=== PATIENT | female | born 1945 | race Hispanic/Latino ===

== ENCOUNTER 2017-04-04 05:07 | Emergency (ER) | payer MEDICARE, BC ==
[2017-04-04] MEDS ORDERED: Ketorolac Tromethamine 30 MG/ML VIAL ONE ×2 (05:32→06:14)
[2017-04-04 05:37] LABS: #Eosinphils 0.1 thou/uL (0.0-0.7); #Lymphocytes 1.5 thou/uL (1.20-3.40); #Monocytes 0.4 thou/uL (0.11-0.59); %Basophils 0.7 % (0.0-1.0); %Eosinophils 2.6 % (0.0-10.0); %Lymphocytes 29.8 % (21.0-51.0); %Monocytes 7.4 % (0.0-10.0); Hematocrit 39.9 % (36.0-47.0); Mean Platelet Volume 6.7 fL (7.4-10.4)
[2017-04-04 05:49] LABS: ALT (SGPT) 8 U/L (8-55); AST (SGOT) 14 U/L (5-34); Alkaline Phosphatase 66 U/L (40-150); Anion Gap 13 mmol/L (10-20); BUN (Urea Nitrogen) 16 mg/dL (9.8-20.1); Bilirubin, Total 0.3 mg/dL (0.2-1.2); Calc. Creatinine Clearance 0 mL/min (70-130); Calcium 9.2 mg/dL (7.8-10.44); Carbon Dioxide 23 mmol/L (23-31); Chloride 109 mmol/L (98-107); Estimated GFR-MDRD 73; Lipase 34 U/L (8-78); Protein, Total 7.1 g/dL (6.0-8.3)
[2017-04-04 05:57] LABS: Bilirubin Negative (Negative); Blood, Urine Small (Negative); Glucose, Urine (Dipstick) Negative (Negative); Ketone, Urine Negative (Negative); Nitrite Negative (Negative); Protein, Urine (Dipstick) Negative (Neg-Trace); Urobilinogen 0.2 mg/dL (0.2-1.0)
[2017-04-04 06:06] LABS: Bacteria/HPF Rare-Few HPF (None Seen); Hyaline Casts/LPF NONE SEEN LPF (0-3 Hyaline); RBC/HPF 0-3 HPF (0-3); Squamous Epithelial 0-3 HPF (0-3)
--- NOTE | 2017-04-04 08:22 | CT ---
PRELIMINARY REPORT/[facility]/EMERGENCY AFTER HOURS PROCEDURE: EXAM: CT Abdomen and Pelvis Without Intravenous Contrast EXAM DATE/TIME: Exam ordered 04/04/2017 5:40 AM CLINICAL HISTORY: 72 years old, female; Pain; Abdominal pain; Flank; Right; Patient HX: Елена has had right flank pain x 2 days. Started near the back, radiates toward the rlq. No dysuria, hematuria, or frequency. No fever, vomiting, diarrhea, or constipation. No similar episodes in the past. Improves with ibuprofen but recurs; Worse last night than the day before. No rash. TECHNIQUE: Axial computed tomography images of the abdomen and pelvis without intravenous contrast. Coronal reformatted images were created and reviewed. COMPARISON: No relevant prior studies available. FINDINGS: Lower thorax: The visualized portions of the lung bases are normal. A small hiatal hernia is present . ABDOMEN: Liver: There are no focal liver lesions present. Gallbladder and bile ducts: The gallbladder is normal. There is no evidence of biliary ductal dilati on. The gallbladder is normal. There is no evidence of biliary ductal dilation. No calcified stones. Pancreas: The pancreas is normal. No ductal dilation. Spleen: The spleen is normal. Adrenals: The adrenal glands are normal. Kidneys and ureters: There is a simple cyst in the right kidney. There is a simple cyst in the left kidney. No obstructing stones. No hydronephrosis. Stomach and bowel: There is nonspecific rectal wall thickening, possibly due to postsurgical change. The stomach is normal. The duodenum is unremarkable. The colon is normal. No obstruction. Appendix: A normal appendix is identified. PELVIS: Bladder: The bladder is normal. The bladder is normal. No stones. Reproductive: The uterus is not visualized, and may be atrophic or surgically absent. ABDOMEN and PELVIS: Intraperitoneal space: Normal. No free air. No significant fluid collection. Bones/joints: No acute fracture. No dislocation. Soft tissues: Normal. Vasculature: Normal. No abdominal aortic aneurysm. Lymph nodes: Normal. No enlarged lymph nodes. IMPRESSION: There is nonspecific rectal wall thickening, possibly due to postsurgical change however underlying mass cannot be excluded. Clinical correlation is advised. Thank you for allowing us to participate in the care of your patient. Dictated and Authenticated by: Chau Garay MD 04/04/2017 6:19 AM Central Time ([place] \T\ [place]) FINAL REPORT CT STONE PROTOCOL: I agree with the preliminary report given by Dr. Chau Garay of [facility]. POS: [facility]
== END 2017-04-04 06:49 | disposition home or self-care (01) ==
LOC: SCSER 05:07
DX: R10.31 Right lower quadrant pain (principal); E78.5 Hyperlipidemia, unspecified; Z79.82 Long term (current) use of aspirin; Z79.899 Other long term (current) drug therapy
CPT/HCPCS: 74176; 80053; 81003; 81015; 83690; 85025; 87086; 96361; 96374; 96376; J1885

== ENCOUNTER 2017-04-07 05:30 | Emergency (ER) | payer MEDICARE, BC ==
[2017-04-07 06:13] LABS: Bilirubin Negative (Negative); Blood, Urine Trace (Negative); Glucose, Urine (Dipstick) Negative (Negative); Ketone, Urine Negative (Negative); Nitrite Negative (Negative); Protein, Urine (Dipstick) Negative (Neg-Trace); Urobilinogen 0.2 mg/dL (0.2-1.0)
[2017-04-07 06:21] LABS: Bacteria/HPF None Seen HPF (None Seen); Hyaline Casts/LPF NONE SEEN LPF (0-3 Hyaline); RBC/HPF 0-3 HPF (0-3); Squamous Epithelial 0-3 HPF (0-3); WBC/HPF 0-3 HPF (0-3)
[2017-04-07] MEDS ORDERED: Ketorolac Tromethamine 30 MG/ML VIAL ONE (06:28)
[2017-04-07] MEDS ORDERED: Promethazine HCl 25 MG/ML VIAL ONE (06:57)
[2017-04-07] MEDS ORDERED: cefTRIAXone\\ROCEPHIN 1 GM VIAL ONE (07:50)
[2017-04-07] MEDS ORDERED: Sodium Chloride 0.9% 0 ML ONE (10:06)
== END 2017-04-07 08:33 | disposition home or self-care (01) ==
LOC: SCSER 05:30
DX: N12 Tubulo-interstitial nephritis, not specified as acute or chronic (principal); K59.00 Constipation, unspecified; B02.9 Zoster without complications; A49.02 Methicillin resistant Staphylococcus aureus infection, unspecified site; Z79.899 Other long term (current) drug therapy; E78.5 Hyperlipidemia, unspecified
CPT/HCPCS: 81003; 81015; 87086; 94760; 96361; 96374; 96375; J0696; J1885; J2270; J2550; J7050

== ENCOUNTER 2017-07-14 08:15 | Outpatient (CLI) | payer MEDICARE, BC | END 2017-07-14 08:16 | disposition home or self-care (01) | LOC: BICMRI 08:15 | PROVIDERS: ATTEND Anesthesiology Pain Medicine | DX: B02.29 Other postherpetic nervous system involvement (principal); M47.24 Other spondylosis with radiculopathy, thoracic region | CPT/HCPCS: 72146 ==

== ENCOUNTER 2017-10-19 11:54 | Emergency (ER) | payer MEDICARE, BC ==
--- NOTE | 2017-10-19 13:03 | RAD ---
THREE VIEWS LEFT FOOT: HISTORY: Patient who fell while getting up from a chair and injured left foot. FINDINGS: AP, lateral, and oblique views left foot are obtained. No evidence of left foot fractures, subluxations, or bony lesions seen. IMPRESSION: Normal 3 views left foot. POS: [facility]
[2017-10-19] MEDS ORDERED: Ibuprofen 600 MG TAB ONE (13:06)
--- NOTE | 2017-10-19 13:27 | RAD ---
THREE VIEWS OF THE LEFT ANKLE: INDICATION: Left ankle injury after fall. FINDINGS: There is a nondisplaced obliquely oriented fracture involving the lateral malleolus. Ankle mortise a nd talar dome are preserved. IMPRESSION: Nondisplaced lateral malleolar fracture. POS: [facility]
== END 2017-10-19 13:15 | disposition home or self-care (01) ==
LOC: SCSER 11:54
DX: S82.65XA Nondisplaced fracture of lateral malleolus of left fibula, initial encounter for closed fracture (principal); E78.5 Hyperlipidemia, unspecified; Z79.899 Other long term (current) drug therapy; W07.XXXA Fall from chair, initial encounter

== ENCOUNTER 2018-01-29 15:18 | Outpatient (CLI) | payer BC, MEDICARE | END 2018-01-29 15:19 | disposition home or self-care (01) | LOC: BICMAMMO 15:18 | PROVIDERS: ATTEND Internal Medicine | DX: Z12.31 Encounter for screening mammogram for malignant neoplasm of breast (principal); N64.89 Other specified disorders of breast; Z80.3 Family history of malignant neoplasm of breast | CPT/HCPCS: 77063; 77067 ==

== ENCOUNTER 2018-02-06 10:11 | Outpatient (CLI) | payer MEDICARE, BC | END 2018-02-06 10:12 | disposition home or self-care (01) | LOC: BICMAMMO 10:11 | PROVIDERS: ATTEND Internal Medicine | DX: N64.89 Other specified disorders of breast (principal); Z80.3 Family history of malignant neoplasm of breast | CPT/HCPCS: 76642; 77065; G0279 ==

== ENCOUNTER 2019-02-09 14:10 | Outpatient (CLI) | payer MEDICARE, BC | END 2019-02-09 14:11 | disposition home or self-care (01) | LOC: CTENTCT 14:10 | PROVIDERS: ATTEND Specialist | DX: J32.9 Chronic sinusitis, unspecified (principal) | CPT/HCPCS: 70486 ==

== ENCOUNTER 2019-04-20 11:05 | Outpatient (CLI) | payer MEDICARE, BC ==
--- NOTE | 2019-04-20 11:56 | RAD ---
CHEST 2 VIEWS: Date: 04/20/19 COMPARISON: 04/07/18. HISTORY: Chronic cough. FINDINGS: Atherosclerosis of aortic knob. Pulmonary vessels and hilum are normal. Costophrenic angles are clear . No masses or consolidation. No pneumothorax or acute osseous abnormalities. IMPRESSION: Atherosclerosis. No acute cardiopulmonary process. POS: [facility]
== END 2019-04-20 11:06 | disposition home or self-care (01) ==
LOC: BICRAD 11:05
PROVIDERS: ATTEND Physician Assistant Medical
DX: R05 Cough (principal); K21.9 Gastro-esophageal reflux disease without esophagitis; I70.0 Atherosclerosis of aorta
CPT/HCPCS: 71046

== ENCOUNTER 2019-05-26 10:07 | Outpatient (CLI) | payer MEDICARE, BC ==
--- NOTE | 2019-05-26 11:19 | BD ---
BONE DENSITOMETRY USING DEXA: HISTORY: Post menopausal screening for osteoporosis. Other disorders of bone density and structure. FINDINGS LUMBAR SPINE BMD (g/cm2) T-SCORE Z-SCORE L1 0.818 -1.6 0.6 L2 0.977 -0.5 1.9 L3 0.995 -0.8 1.7 L4 0.880 -1.6 0.9 TOTAL 0.920 -1.2 1.3 BMD (g/cm2) T-SCORE Z-SCORE NECK 0.567 -2.5 -0.5 TOTAL 0.645 -2.4 -0.5 IMPRESSION: Osteoporosis. POS: [facility]
== END 2019-05-26 10:08 | disposition home or self-care (01) ==
LOC: BICMAMMO 10:07
PROVIDERS: ATTEND Internal Medicine
DX: M85.80 Other specified disorders of bone density and structure, unspecified site (principal); M81.0 Age-related osteoporosis without current pathological fracture
CPT/HCPCS: 77080

== ENCOUNTER 2019-06-15 13:36 | Outpatient (CLI) | payer MEDICARE, BC ==
--- NOTE | 2019-06-15 14:03 | RAD ---
EXAM: Chest PA and lateral: HISTORY: Dyspnea. COMPARISON: 07/14/2014 FINDINGS: Heart: Normal cardiac silhouette Aorta: Atherosclerosis. Pulmonary vessels: Normal Costophrenic angles: Costophrenic angles are clear. Lungs: No consolidation or masses. Pneumothorax: No pneumothorax Osseous structures: No osseous abnormalities IMPRESSION: No acute cardiopulmonary process. Atherosclerosis.
== END 2019-06-15 13:37 | disposition home or self-care (01) ==
LOC: RAD 13:36
PROVIDERS: ATTEND Internal Medicine Pulmonary Disease
DX: R06.00 Dyspnea, unspecified (principal); I70.90 Unspecified atherosclerosis
CPT/HCPCS: 71046

== ENCOUNTER 2021-05-23 11:09 | Outpatient (CLI) | payer MEDICARE, BC | END 2021-05-23 11:10 | disposition home or self-care (01) | LOC: BICRAD 11:09 | PROVIDERS: ATTEND Nurse Practitioner Family | DX: M17.12 Unilateral primary osteoarthritis, left knee (principal) ==

== ENCOUNTER 2021-07-26 15:38 | Outpatient (CLI) | payer MEDICARE, BC | END 2021-07-26 15:39 | disposition home or self-care (01) | LOC: BICMAMMO 15:38 | PROVIDERS: ATTEND Internal Medicine | DX: Z12.31 Encounter for screening mammogram for malignant neoplasm of breast (principal); Z80.3 Family history of malignant neoplasm of breast | CPT/HCPCS: 77063; 77067 ==

== ENCOUNTER 2022-01-21 08:03 | Emergency (ER) | payer MEDICARE, BC ==
[2022-01-21 08:27] LABS: #Basophils 0.1 thou/uL (0.0-0.2); #Eosinphils 0.1 thou/uL (0.0-0.7); #Lymphocytes 1.4 thou/uL (1.20-3.40); #Monocytes 0.4 thou/uL (0.11-0.59); #Neutrophils 3.7 thou/uL (1.40-6.50); %Eosinophils 1.7 % (0.0-10.0); %Lymphocytes 25.3 % (21.0-51.0); %Neutrophils 65.1 % (42.0-75.0); Mean Corpuscular HGB CONC 32.5 g/dL (32.0-36.0); Mean Corpuscular Hemoglobin 31.4 pg (27.0-31.0); Mean Corpuscular Volume 96.7 fL (78.0-98.0); Mean Platelet Volume 7.4 fL (7.4-10.4); Platelet Count 211 thou/uL (130-400); RBC Distribution Width 11.9 % (11.5-14.5); Red Blood Cell (RBC) Count 4.44 mill/uL (4.20-5.40); White Blood Cell (WBC) Count 5.6 thou/uL (4.8-10.8)
[2022-01-21 08:49] LABS: ALT (SGPT) 12 U/L (8-55); AST (SGOT) 19 U/L (5-34); Albumin 4.1 g/dL (3.4-4.8); Alkaline Phosphatase 69 U/L (40-110); Anion Gap 13 mmol/L (10-20); BUN (Urea Nitrogen) 18 mg/dL (9.8-20.1); Bilirubin, Total 0.6 mg/dL (0.2-1.2); Calc. Creatinine Clearance 0 mL/min (70-130); Calcium 9.5 mg/dL (7.8-10.44); Carbon Dioxide 28 mmol/L (23-31); Chloride 107 mmol/L (98-107); Estimated GFR 75; Glucose 94 mg/dL (83-110); Lipase 38 U/L (8-78); Potassium 4.5 mmol/L (3.5-5.1); Protein, Total 7.1 g/dL (5.8-8.1); Sodium 143 mmol/L (136-145)
[2022-01-21] MEDS ORDERED: Nitroglycerin 2% Ointment 1 INCH/1 GM Packet ONE (08:56)
[2022-01-21] MEDS ORDERED: Iopamidol-370 76% 500 ML 1 ML ONE (11:32)
[2022-01-21] MEDS ORDERED: Pregabalin 50 MG CAP PO SCH (13:30)
[2022-01-21] MEDS ORDERED: Nitroglycerin 2% Ointment 1 INCH/1 GM Packet TOP SCH (13:30)
[2022-01-21] MEDS ORDERED: DULoxetine 60 MG CAP PO SCH (13:30)
[2022-01-21 17:43] LABS: SARS-CoV-2 NAA Rapid Test Not Detected (NotDetected)
== END 2022-01-21 17:36 | disposition short-term general hospital (02) ==
LOC: ERS 08:03
DX: R07.9 Chest pain, unspecified (principal); I10 Essential (primary) hypertension; E78.5 Hyperlipidemia, unspecified; E78.00 Pure hypercholesterolemia, unspecified; Z20.822 Contact with and (suspected) exposure to COVID-19; Z79.899 Other long term (current) drug therapy; Z79.82 Long term (current) use of aspirin
CPT/HCPCS: 71045; 71275; 74174; 80053; 83690; 84484; 85025; 85379; 93005; 94760; U0002

== ENCOUNTER 2022-01-22 19:02 | Inpatient (IN) | payer MEDICARE, BC ==
[2022-01-22 23:23] VITALS: BMI 24.2
[2022-01-22] MEDS ORDERED: ALPRAZolam 0.5 MG TAB PO SCH (23:45)
[2022-01-23] MEDS ORDERED: Ondansetron ODT 4 MG TAB PO PRN (00:18)
[2022-01-23] MEDS ORDERED: Acetaminophen 650 MG Suppository PR PRN (00:18)
[2022-01-23] MEDS ORDERED: Acetaminophen 325 MG TAB PO PRN (00:18)
[2022-01-23] MEDS ORDERED: Ondansetron PF 4 MG/2 ML Vial IVP PRN ×2 (00:18→12:49)
[2022-01-23] MEDS ORDERED: Morphine 4 MG/ML VIAL SLOW IVP PRN (00:24)
[2022-01-23] MEDS ORDERED: Nitroglycerin 0.4 MG TAB (25 Tab Bottle) SL PRN (00:24)
[2022-01-23] MEDS ORDERED: Lidocaine 1% MPF 2 ML VIAL ONE (06:04)
[2022-01-23] MEDS ORDERED: Albumin 5% 500 ML ONE (06:16)
[2022-01-23 06:48] LABS: #Eosinphils 0.1 thou/uL (0.0-0.7); #Lymphocytes 1.3 thou/uL (1.20-3.40); #Monocytes 0.4 thou/uL (0.11-0.59); #Neutrophils 2.8 thou/uL (1.40-6.50); %Basophils 0.2 % (0.0-1.0); %Eosinophils 2.4 % (0.0-10.0); %Lymphocytes 28.6 % (21.0-51.0); %Monocytes 8.4 % (0.0-10.0); %Neutrophils 60.4 % (42.0-75.0); Hemoglobin 12.1 g/dL (12.0-16.0); Mean Corpuscular Volume 96.8 fL (78.0-98.0); Mean Platelet Volume 7.6 fL (7.4-10.4); Platelet Count 177 thou/uL (130-400); RBC Distribution Width 11.9 % (11.5-14.5); Red Blood Cell (RBC) Count 3.79 mill/uL (4.20-5.40); White Blood Cell (WBC) Count 4.6 thou/uL (4.8-10.8)
[2022-01-23 06:49] LABS: Anion Gap 11 mmol/L (10-20); BUN (Urea Nitrogen) 14 mg/dL (9.8-20.1); Calc. Creatinine Clearance 65 mL/min (70-130); Calcium 8.9 mg/dL (7.8-10.44); Carbon Dioxide 25 mmol/L (23-31); Chloride 108 mmol/L (98-107); Estimated GFR 83; Glucose 87 mg/dL (83-110); Potassium 3.7 mmol/L (3.5-5.1); Sodium 140 mmol/L (136-145)
[2022-01-23] MEDS ORDERED: Heparin 10,000 UNITS/1 ML VIAL 30,000 UNITS in Sodium Chloride 0.9% 1,000 ML FS SCH (07:00)
[2022-01-23] MEDS ORDERED: Midazolam HCl 5 mg/5 ml Vial ONE (07:06)
[2022-01-23] MEDS ORDERED: fentaNYL Citrate/PF 100 MCG/2 ML SYRINGE ONE (07:06)
[2022-01-23] MEDS ORDERED: Dexmedetomidine 200 MCG/2 ML VIAL ONE (07:06)
[2022-01-23] MEDS ORDERED: Lidocaine 1% PF 5 ML VIAL ONE ×2 (07:13→09:17)
[2022-01-23] MEDS ORDERED: Ondansetron ODT 4 MG TAB ONE (07:13)
[2022-01-23] MEDS ORDERED: Levofloxacin 500 mg/D5W 100 ml Premix Bag ONE (07:22)
[2022-01-23] MEDS ORDERED: PHENYLEPHRINE-NS 100 MCG/ML 10 ML SYRINGE ONE ×2 (08:34→08:47)
[2022-01-23] MEDS ORDERED: Aspirin 81 mg Enteric Coated Tablet PO SCH (09:00)
[2022-01-23] MEDS ORDERED: SUGAMMADEX SODIUM 200 MG/2 ML VIAL ONE (09:12)
[2022-01-23] MEDS ORDERED: Heparin 30,000 units/30 ml VIAL ONE (09:17)
[2022-01-23] MEDS ORDERED: PROPOFOL 200 MG/20 ML VIAL ONE (09:17)
[2022-01-23] MEDS ORDERED: Glycopyrrolate 0.2 MG/ML 5 ML SYRINGE ONE (09:17)
[2022-01-23] MEDS ORDERED: Aminocaproic Acid 5 GM/20 ML VIAL ONE (09:17)
[2022-01-23] MEDS ORDERED: Heparin 5,000 UNITS/ML VIAL ONE (09:17)
[2022-01-23] MEDS ORDERED: Nitroglycerin 50 MG/250 ML BOT ONE (09:17)
[2022-01-23] MEDS ORDERED: Calcium Chloride 1 GM/10 ML Abboject SYRINGE ONE (09:17)
[2022-01-23] MEDS ORDERED: Papaverine 60 MG/2 ML VIAL ONE (09:17)
[2022-01-23] MEDS ORDERED: Sodium Bicarb 50 MEQ/50 ML Abboject 8.4% SYRINGE ONE (09:17)
[2022-01-23] MEDS ORDERED: Dexamethasone 20 MG/5 ML VIAL ONE (09:17)
[2022-01-23] MEDS ORDERED: Thrombin 5000 UNITS/5 ML VIAL ONE (09:17)
[2022-01-23] MEDS ORDERED: Lidocaine 2% PF 100 mg/5 ml Syringe ONE (09:17)
[2022-01-23] MEDS ORDERED: Ondansetron PF 4 MG/2 ML Vial ONE (09:17)
[2022-01-23] MEDS ORDERED: Vecuronium 10 MG VIAL ONE (09:17)
[2022-01-23] MEDS ORDERED: Magnesium 5 GM/10 ML VIAL ONE (09:17)
[2022-01-23] MEDS ORDERED: Norepinephrine 4 MG/4 ML VIAL ONE (09:17)
[2022-01-23] MEDS ORDERED: Protamine Sulfate 250 MG/25 ML VIAL ONE (09:17)
[2022-01-23] MEDS ORDERED: Potassium Chloride 60 MEQ/30 ML VIAL ONE (09:17)
[2022-01-23] MEDS ORDERED: Cardioplegic Soln 1,000 ML BAG ONE (09:17)
[2022-01-23] MEDS ORDERED: Nitroglycerin 50 MG/250 ML BOT 250 ML ONE (11:24)
[2022-01-23 11:55] LABS: Actual Bicarbonate (HCO3a) 22.9 mEq/L (22-28); Analyzer IN Cardio OR; Base Excess (BEa) 0.1 mEq/L (-2.0 to +3.0); CO2 Tension 31.1 mmHg (35.0-45.0); Calcium, Ionized (arterial) 1.13 mmol/L (1.12-1.30); Carboxyhemoglobin (COHb) 0.2 gm% (0.0-3.0); Potassium - ABG Lab 3.66 mmol/L (3.70-5.30); pH, Arterial 7.48 (7.35-7.45)
[2022-01-23 11:56] LABS: Actual Bicarbonate (HCO3a) 21.7 mEq/L (22-28); Analyzer IN Cardio OR; Base Excess (BEa) -0.1 mEq/L (-2.0 to +3.0); Calcium, Ionized (arterial) 0.92 mmol/L (1.12-1.30); Carboxyhemoglobin (COHb) 0.5 gm% (0.0-3.0); Hemoglobin (Hb) 7.5 g/dL (12.0-16.0); O2 Tension (PaO2), arterial 418.3 mmHg (> 70.0); Potassium - ABG Lab 5.32 mmol/L (3.70-5.30)
[2022-01-23 11:56] LABS: Actual Bicarbonate (HCO3a) 22.6 mEq/L (22-28); Analyzer IN Cardio OR; Base Excess (BEa) 0.2 mEq/L (-2.0 to +3.0); CO2 Tension 27.8 mmHg (35.0-45.0); Calcium, Ionized (arterial) 1.13 mmol/L (1.12-1.30); Carboxyhemoglobin (COHb) 0.3 gm% (0.0-3.0); Potassium - ABG Lab 4.12 mmol/L (3.70-5.30); pH, Arterial 7.53 (7.35-7.45)
[2022-01-23 11:56] LABS: Actual Bicarbonate (HCO3a) 23.6 mEq/L (22-28); Analyzer IN Cardio OR; Base Excess (BEa) -0.3 mEq/L (-2.0 to +3.0); CO2 Tension 36.1 mmHg (35.0-45.0); Calcium, Ionized (arterial) 1.11 mmol/L (1.12-1.30); Carboxyhemoglobin (COHb) 0.2 gm% (0.0-3.0); Hemoglobin (Hb) 11.7 g/dL (12.0-16.0); O2 Tension (PaO2), arterial 478.6 mmHg (> 70.0); Potassium - ABG Lab 3.84 mmol/L (3.70-5.30); pH, Arterial 7.43 (7.35-7.45)
[2022-01-23 11:56] LABS: Actual Bicarbonate (HCO3a) 22.4 mEq/L (22-28); Analyzer IN Cardio OR; Base Excess (BEa) -5.5 mEq/L (-2.0 to +3.0); CO2 Tension 54.6 mmHg (35.0-45.0); Carboxyhemoglobin (COHb) 0.3 gm% (0.0-3.0); Hemoglobin (Hb) 11.9 g/dL (12.0-16.0); Potassium - ABG Lab 4.11 mmol/L (3.70-5.30)
[2022-01-23 11:57] LABS: O2 Tension (PaO2), arterial 521.8 mmHg (> 70.0); Puncture Site Arterial Line
[2022-01-23 11:58] LABS: pH, Arterial 7.56 (7.35-7.45)
[2022-01-23 11:58] LABS: Puncture Site Arterial Line
[2022-01-23 11:59] LABS: CO2 Tension 24.7 mmHg (35.0-45.0); Puncture Site Arterial Line
[2022-01-23 12:00] LABS: Puncture Site Arterial Line
[2022-01-23 12:00] LABS: Puncture Site Arterial Line; pH, Arterial 7.23 (7.35-7.45)
[2022-01-23] MEDS ORDERED: niCARdipine 25 MG in Sodium Chloride 0.9% 250 ML 250 ML IVPB PRN (12:49)
[2022-01-23] MEDS ORDERED: Mag-Al 1200 mg/1200 mg/30 ML UDCUP PO PRN (12:49)
[2022-01-23] MEDS ORDERED: Hetastarch 6% 500 ML 500 ML IVPB PRN (12:49)
[2022-01-23] MEDS ORDERED: NOREPINEPHRINE 8 MG/250 ML-D5W 250 ML IVPB PRN (12:49)
[2022-01-23] MEDS ORDERED: DOPamine 400 MG/D5W 250 ML 250 ML IVPB PRN (12:49)
[2022-01-23] MEDS ORDERED: Potassium Chloride 20 MEQ/100 ML PREMIX BAG IVPB PRN (12:49)
[2022-01-23] MEDS ORDERED: Post-Op Insulin Drip Protocol IVPB ONE (12:49)
[2022-01-23] MEDS ORDERED: Bisacodyl 5 MG TAB PO PRN (12:49)
[2022-01-23] MEDS ORDERED: Nitroglycerin 50 MG/250 ML BOT 250 ML IVPB PRN (12:49)
[2022-01-23] MEDS ORDERED: Morphine 2 MG/ML VIAL SLOW IVP PRN (12:49)
[2022-01-23] MEDS ORDERED: Guaifenesin DM 100-10/5 ML UDCUP PO PRN (12:49)
[2022-01-23] MEDS ORDERED: Bisacodyl 10 MG SUPP PR PRN (12:49)
[2022-01-23] MEDS ORDERED: hydrALAZINE 20 MG/ML VIAL SLOW IVP PRN (12:49)
[2022-01-23 13:18] LABS: #Eosinphils 0.1 thou/uL (0.0-0.7); #Lymphocytes 1.1 thou/uL (1.20-3.40); #Monocytes 0.4 thou/uL (0.11-0.59); #Neutrophils 10.8 thou/uL (1.40-6.50); %Basophils 0.1 % (0.0-1.0); %Eosinophils 0.6 % (0.0-10.0); %Lymphocytes 9.1 % (21.0-51.0); %Monocytes 3.3 % (0.0-10.0); %Neutrophils 86.9 % (42.0-75.0); Mean Corpuscular HGB CONC 32.5 g/dL (32.0-36.0); Mean Corpuscular Hemoglobin 31.8 pg (27.0-31.0); Mean Corpuscular Volume 97.9 fL (78.0-98.0); Mean Platelet Volume 7.5 fL (7.4-10.4); Platelet Count 136 thou/uL (130-400); Red Blood Cell (RBC) Count 3.78 mill/uL (4.20-5.40); White Blood Cell (WBC) Count 12.4 thou/uL (4.8-10.8)
[2022-01-23 13:30] LABS: INR-International Normal Ratio 1.3; PTT 33.4 sec (22.9-36.1); Prothrombin Time 16.2 sec (12.0-14.7)
[2022-01-23] MEDS ORDERED: Dextrose 5% in Water 1,000 ML IV PRN (13:30)
[2022-01-23] MEDS ORDERED: HUMULIN R 100 UNITS in Sodium Chloride 0.9% 100 ML IVPB SCH (13:30)
[2022-01-23] MEDS ORDERED: Dextrose 50% Abboject 50 ML SYRINGE SLOW IVP PRN (13:30)
[2022-01-23] MEDS ORDERED: Insulin Regular 300 UNITS/3 ML VIAL SC PRN (13:30)
[2022-01-23 13:50] LABS: Anion Gap 15 mmol/L (10-20); BUN (Urea Nitrogen) 11 mg/dL (9.8-20.1); Calc. Creatinine Clearance 75 mL/min (70-130); Calcium 7.5 mg/dL (7.8-10.44); Carbon Dioxide 17 mmol/L (23-31); Chloride 111 mmol/L (98-107); Estimated GFR 90; Glucose 166 mg/dL (83-110); Potassium 4.2 mmol/L (3.5-5.1); Sodium 139 mmol/L (136-145)
[2022-01-23] MEDS: Ketorolac Tromethamine 30 MG/ML VIAL IVP SCH ×3 (14:03→23:15)
[2022-01-23] MEDS: Fentanyl 100 MCG/2 ML VIAL SLOW IVP PRN ×3 (14:10→19:55)
[2022-01-23] MEDS: Lactated Ringer's 1,000 ML IV SCH (14:18)
[2022-01-23 16:33] LABS: Hemoglobin 12.4 g/dL (12.0-16.0)
[2022-01-23 17:01] LABS: Potassium 4.5 mmol/L (3.5-5.1)
[2022-01-23] MEDS: Famotidine/PF 20 mg/2ml Vial SLOW IVP SCH (20:00)
[2022-01-23] MEDS: Acetaminophen 325 MG TAB PO PRN (22:29)
[2022-01-24] MEDS: Fentanyl 100 MCG/2 ML VIAL SLOW IVP PRN ×2 (00:07→02:30)
[2022-01-24] MEDS: Lactated Ringer's 1,000 ML IV SCH ×2 (02:34→14:21)
[2022-01-24 05:13] LABS: #Lymphocytes 0.5 thou/uL (1.20-3.40); #Monocytes 0.6 thou/uL (0.11-0.59); #Neutrophils 9.8 thou/uL (1.40-6.50); %Eosinophils 0.1 % (0.0-10.0); %Lymphocytes 4.9 % (21.0-51.0); %Monocytes 5.6 % (0.0-10.0); %Neutrophils 89.4 % (42.0-75.0); Mean Corpuscular HGB CONC 33.4 g/dL (32.0-36.0); Mean Corpuscular Hemoglobin 32.2 pg (27.0-31.0); Mean Corpuscular Volume 96.3 fL (78.0-98.0); Mean Platelet Volume 7.6 fL (7.4-10.4); Platelet Count 157 thou/uL (130-400); RBC Distribution Width 12.2 % (11.5-14.5); Red Blood Cell (RBC) Count 3.42 mill/uL (4.20-5.40)
[2022-01-24 05:35] LABS: Anion Gap 12 mmol/L (10-20); BUN (Urea Nitrogen) 14 mg/dL (9.8-20.1); Calc. Creatinine Clearance 65 mL/min (70-130); Calcium 8.2 mg/dL (7.8-10.44); Carbon Dioxide 22 mmol/L (23-31); Chloride 109 mmol/L (98-107); Estimated GFR 83; Glucose 116 mg/dL (83-110); Potassium 4.2 mmol/L (3.5-5.1); Sodium 139 mmol/L (136-145)
[2022-01-24] MEDS: Ketorolac Tromethamine 30 MG/ML VIAL IVP SCH ×4 (06:13→23:55)
[2022-01-24] MEDS: Famotidine/PF 20 mg/2ml Vial SLOW IVP SCH (08:49)
[2022-01-24] MEDS: Polyethylene Glycol 3350 17 GM Packet PO SCH (08:49)
[2022-01-24] MEDS: Aspirin Chewable 81 MG TAB PO SCH (08:49)
[2022-01-24] MEDS ORDERED: Insulin Glargine 30 UNITS/0.3 ML VIAL SC PRN (13:24)
[2022-01-24] MEDS ORDERED: Nitroglycerin 0.4 MG TAB (25 Tab Bottle) SL PRN (16:35)
[2022-01-24] MEDS ORDERED: Mineral Oil ENEMA PR PRN (16:35)
[2022-01-24] MEDS: Rosuvastatin 10 MG TAB PO SCH (20:35)
[2022-01-24] MEDS: Pregabalin 50 MG CAP PO SCH (20:35)
[2022-01-24] MEDS: Famotidine 20 MG TAB PO SCH (20:35)
[2022-01-25 04:50] LABS: #Lymphocytes 0.9 thou/uL (1.20-3.40); #Monocytes 0.4 thou/uL (0.11-0.59); #Neutrophils 5.3 thou/uL (1.40-6.50); %Eosinophils 0.4 % (0.0-10.0); %Lymphocytes 13.4 % (21.0-51.0); %Monocytes 6.5 % (0.0-10.0); %Neutrophils 79.6 % (42.0-75.0); Hemoglobin 8.8 g/dL (12.0-16.0); Mean Corpuscular Hemoglobin 32.3 pg (27.0-31.0); Mean Corpuscular Volume 97.7 fL (78.0-98.0); Mean Platelet Volume 7.9 fL (7.4-10.4); Platelet Count 120 thou/uL (130-400); RBC Distribution Width 12.3 % (11.5-14.5); Red Blood Cell (RBC) Count 2.73 mill/uL (4.20-5.40); White Blood Cell (WBC) Count 6.7 thou/uL (4.8-10.8)
[2022-01-25 05:10] LABS: Anion Gap 12 mmol/L (10-20); BUN (Urea Nitrogen) 16 mg/dL (9.8-20.1); Calc. Creatinine Clearance 66 mL/min (70-130); Calcium 8.5 mg/dL (7.8-10.44); Carbon Dioxide 22 mmol/L (23-31); Chloride 112 mmol/L (98-107); Estimated GFR 80; Glucose 113 mg/dL (83-110); Potassium 3.8 mmol/L (3.5-5.1); Sodium 142 mmol/L (136-145)
[2022-01-25] MEDS: Levothyroxine Sodium 25 MCG TAB PO SCH (06:01)
[2022-01-25] MEDS: Ketorolac Tromethamine 30 MG/ML VIAL IVP SCH (06:02)
[2022-01-25] MEDS ORDERED: Melatonin 3 MG TAB PO PRN (06:22)
[2022-01-25] MEDS: DULoxetine 60 MG CAP PO SCH (08:46)
[2022-01-25] MEDS: Pregabalin 50 MG CAP PO SCH ×2 (08:48→20:02)
[2022-01-25] MEDS: Potassium Chloride 10 MEQ TAB PO SCH (08:50)
[2022-01-25] MEDS: Polyethylene Glycol 3350 17 GM Packet PO SCH (08:51)
[2022-01-25] MEDS: Famotidine 20 MG TAB PO SCH ×2 (08:51→20:01)
[2022-01-25] MEDS: Aspirin Chewable 81 MG TAB PO SCH (08:51)
[2022-01-25] MEDS: Furosemide 20 MG TAB PO SCH (08:51)
[2022-01-25] MEDS: Rosuvastatin 10 MG TAB PO SCH (20:01)
[2022-01-26 04:51] LABS: #Monocytes 0.3 thou/uL (0.11-0.59); %Eosinophils 0.3 % (0.0-10.0); %Neutrophils 78.7 % (42.0-75.0); Hemoglobin 8.7 g/dL (12.0-16.0); Mean Corpuscular HGB CONC 33.1 g/dL (32.0-36.0); Mean Corpuscular Hemoglobin 32.6 pg (27.0-31.0); Mean Corpuscular Volume 98.4 fL (78.0-98.0); Mean Platelet Volume 7.6 fL (7.4-10.4); Platelet Count 144 thou/uL (130-400); RBC Distribution Width 12.3 % (11.5-14.5); Red Blood Cell (RBC) Count 2.66 mill/uL (4.20-5.40); White Blood Cell (WBC) Count 6.4 thou/uL (4.8-10.8)
[2022-01-26] MEDS: Levothyroxine Sodium 25 MCG TAB PO SCH (04:51)
[2022-01-26] MEDS: Acetaminophen 325 MG TAB PO PRN (04:52)
[2022-01-26] MEDS: Aspirin Chewable 81 MG TAB PO SCH (09:54)
[2022-01-26] MEDS: DULoxetine 60 MG CAP PO SCH (09:54)
[2022-01-26] MEDS: Furosemide 20 MG TAB PO SCH (09:54)
[2022-01-26] MEDS: Famotidine 20 MG TAB PO SCH ×2 (09:54→21:22)
[2022-01-26] MEDS: Potassium Chloride 10 MEQ TAB PO SCH (09:54)
[2022-01-26] MEDS: Pregabalin 50 MG CAP PO SCH ×2 (09:55→21:22)
[2022-01-26] MEDS: Polyethylene Glycol 3350 17 GM Packet PO SCH (09:56)
[2022-01-26] MEDS: Rosuvastatin 10 MG TAB PO SCH (21:22)
[2022-01-27] MEDS: Levothyroxine Sodium 25 MCG TAB PO SCH (05:32)
[2022-01-27 05:51] LABS: #Eosinphils 0.1 thou/uL (0.0-0.7); #Lymphocytes 0.9 thou/uL (1.20-3.40); #Monocytes 0.4 thou/uL (0.11-0.59); %Basophils 0.2 % (0.0-1.0); %Lymphocytes 17.3 % (21.0-51.0); %Monocytes 7.3 % (0.0-10.0); %Neutrophils 73.2 % (42.0-75.0); Hemoglobin 8.2 g/dL (12.0-16.0); Mean Corpuscular HGB CONC 32.7 g/dL (32.0-36.0); Mean Corpuscular Hemoglobin 32.1 pg (27.0-31.0); Mean Corpuscular Volume 98.2 fL (78.0-98.0); Mean Platelet Volume 7.6 fL (7.4-10.4); Platelet Count 153 thou/uL (130-400); RBC Distribution Width 12.3 % (11.5-14.5); Red Blood Cell (RBC) Count 2.57 mill/uL (4.20-5.40); White Blood Cell (WBC) Count 5.4 thou/uL (4.8-10.8)
[2022-01-27] MEDS: Potassium Chloride 10 MEQ TAB PO SCH (08:34)
[2022-01-27] MEDS: Aspirin Chewable 81 MG TAB PO SCH (08:34)
[2022-01-27] MEDS: DULoxetine 60 MG CAP PO SCH (08:35)
[2022-01-27] MEDS: Pregabalin 50 MG CAP PO SCH ×2 (08:35→20:43)
[2022-01-27] MEDS: Polyethylene Glycol 3350 17 GM Packet PO SCH (08:35)
[2022-01-27] MEDS: Furosemide 20 MG TAB PO SCH (08:35)
[2022-01-27] MEDS: Famotidine 20 MG TAB PO SCH ×2 (08:36→20:43)
[2022-01-27] MEDS: Metoprolol Tartrate 25 MG TAB PO SCH ×2 (10:02→20:44)
[2022-01-27] MEDS: Rosuvastatin 10 MG TAB PO SCH (20:43)
[2022-01-27] MEDS: Acetaminophen 325 MG TAB PO PRN (20:47)
[2022-01-28] MEDS: Levothyroxine Sodium 25 MCG TAB PO SCH (05:29)
[2022-01-28 05:39] LABS: #Eosinphils 0.1 thou/uL (0.0-0.7); #Lymphocytes 0.9 thou/uL (1.20-3.40); #Monocytes 0.4 thou/uL (0.11-0.59); #Neutrophils 3.2 thou/uL (1.40-6.50); %Basophils 0.3 % (0.0-1.0); %Lymphocytes 19.2 % (21.0-51.0); %Monocytes 9.1 % (0.0-10.0); %Neutrophils 68.3 % (42.0-75.0); Hemoglobin 9.6 g/dL (12.0-16.0); Mean Corpuscular HGB CONC 32.8 g/dL (32.0-36.0); Mean Corpuscular Hemoglobin 31.6 pg (27.0-31.0); Mean Corpuscular Volume 96.4 fL (78.0-98.0); Mean Platelet Volume 7.1 fL (7.4-10.4); Platelet Count 179 thou/uL (130-400); RBC Distribution Width 13.3 % (11.5-14.5); Red Blood Cell (RBC) Count 3.03 mill/uL (4.20-5.40); White Blood Cell (WBC) Count 4.6 thou/uL (4.8-10.8)
[2022-01-28 08:19] VITALS: TEMP 98.3
[2022-01-28 10:14] VITALS: BP 145/65
[2022-01-28] MEDS: Potassium Chloride 10 MEQ TAB PO SCH (10:21)
[2022-01-28] MEDS: Famotidine 20 MG TAB PO SCH (10:22)
[2022-01-28] MEDS: Aspirin Chewable 81 MG TAB PO SCH (10:22)
[2022-01-28] MEDS: Metoprolol Tartrate 25 MG TAB PO SCH (10:23)
[2022-01-28] MEDS: Pregabalin 50 MG CAP PO SCH (10:23)
[2022-01-28] MEDS: DULoxetine 60 MG CAP PO SCH (10:23)
[2022-01-28] MEDS: Furosemide 20 MG TAB PO SCH (10:23)
[2022-01-28] MEDS: Polyethylene Glycol 3350 17 GM Packet PO SCH (10:24)
== END 2022-01-28 12:25 | disposition home or self-care (01) | DRG 234 ==
LOC: 2SW 19:02 → CCU 01-23 07:18 → 2NO 01-24 16:33
PROVIDERS: ADMIT Thoracic Surgery (Cardiothoracic Vascular Surgery); ATTEND Internal Medicine
PROC: 4A023N7 Measurement of Cardiac Sampling and Pressure, Left Heart, Percutaneous Approach (ICD-10-PCS; 2022-01-22)
PROC: B2111ZZ Fluoroscopy of Multiple Coronary Arteries using Low Osmolar Contrast (ICD-10-PCS; 2022-01-22)
PROC: 3E033XZ Introduction of Vasopressor into Peripheral Vein, Percutaneous Approach (ICD-10-PCS; principal; 2022-01-23)
PROC: 021009W Bypass Coronary Artery, One Artery from Aorta with Autologous Venous Tissue, Open Approach (ICD-10-PCS; 2022-01-23)
PROC: 02100Z9 Bypass Coronary Artery, One Artery from Left Internal Mammary, Open Approach (ICD-10-PCS; 2022-01-23)
PROC: 06BQ0ZZ Excision of Left Saphenous Vein, Open Approach (ICD-10-PCS; 2022-01-23)
PROC: 5A1221Z Performance of Cardiac Output, Continuous (ICD-10-PCS; 2022-01-23)
PROC: 02L70CK Occlusion of Left Atrial Appendage with Extraluminal Device, Open Approach (ICD-10-PCS; 2022-01-23)
PROC: 30233N1 Transfusion of Nonautologous Red Blood Cells into Peripheral Vein, Percutaneous Approach (ICD-10-PCS; 2022-01-27)
DX: I25.118 Atherosclerotic heart disease of native coronary artery with other forms of angina pectoris (principal); D62 Acute posthemorrhagic anemia; B02.29 Other postherpetic nervous system involvement; Z20.822 Contact with and (suspected) exposure to COVID-19; I10 Essential (primary) hypertension; E03.9 Hypothyroidism, unspecified; K21.9 Gastro-esophageal reflux disease without esophagitis; F41.9 Anxiety disorder, unspecified; F32.A Depression, unspecified; Z88.0 Allergy status to penicillin; Z79.899 Other long term (current) drug therapy; Z79.82 Long term (current) use of aspirin; Z79.890 Hormone replacement therapy; Z98.890 Other specified postprocedural states; I25.84 Coronary atherosclerosis due to calcified coronary lesion; E78.2 Mixed hyperlipidemia; R51.9 Headache, unspecified; G31.84 Mild cognitive impairment of uncertain or unknown etiology; M17.0 Bilateral primary osteoarthritis of knee; R73.03 Prediabetes; R05.3 Chronic cough; E55.9 Vitamin D deficiency, unspecified; Z86.16 Personal history of COVID-19
CPT/HCPCS: 36415; 36416; 36430; 71045; 71275; 74174; 80048; 80053; 80061; 82805; 83036; 83690; 84443; 84484; 85025; 85379; 85610; 85730; 86850; 86900; 86901; 93005; 93010; 93459; 93798; 94760; 97139; 99152; 99153; C1751; C1769; C1776; G0378; J0153; J0360; J1100; J1642; J1644; J1885; J1956; J2001; J2250; J2405; J2440; J2704; J2710; J2720; J3010; J3370; J3475; J3480; J7050; J7120; J7799; P9016; P9045; Q0162; Q9967; S0017; S0028; U0002

== ENCOUNTER → 2023-07-28 | Day surgery (SDC) | payer MEDICARE, BC ==
[~2023-07-28] MED LIST: Lidocaine Jelly 2% Urojet 10 ML ONE
== END ==
LOC: SDC 12:33
PROVIDERS: ATTEND Internal Medicine Gastroenterology
DX: K64.9 Unspecified hemorrhoids (principal); K62.5 Hemorrhage of anus and rectum; R14.0 Abdominal distension (gaseous); R05.3 Chronic cough; Z86.010 Personal history of colon polyps; Z88.8 Allergy status to other drugs, medicaments and biological substances; Z88.0 Allergy status to penicillin; Z88.5 Allergy status to narcotic agent
CPT/HCPCS: 91034; J2001

== ENCOUNTER 2023-07-30 09:11 | Outpatient (CLI) | payer MEDICARE ==
[2023-07-30 10:30] LABS: #Eosinphils 0.1 10x3/uL (0.0-0.5); #Monocytes 0.3 10x3/uL (0.0-1.1); %Basophils 0.4 % (0.0-2.0); %Eosinophils 1.7 % (0.0-6.0); %Monocytes 7.2 % (0.0-10.0); %Neutrophils 64.3 % (40.0-75.0); Hematocrit 42.1 % (34.9-44.5); Hemoglobin 13.4 g/dL (12.0-15.5); Mean Corpuscular HGB CONC 31.8 g/dL (32.0-36.0); Mean Corpuscular Hemoglobin 29.6 pg (27.0-33.0); Mean Corpuscular Volume 93.1 fl (81.6-98.3); Mean Platelet Volume 9.4 fl (7.4-10.4); Platelet Count 235 10x3/uL (150-450); RBC Distribution Width 12.9 % (11.5-14.5); Red Blood Cell (RBC) Count 4.52 10x6/uL (3.90-5.03); White Blood Cell (WBC) Count 4.7 10x3/uL (3.5-10.5)
[2023-07-30 11:11] LABS: ALT (SGPT) 20 U/L (8-55); AST (SGOT) 23 U/L (5-34); Albumin 4.2 g/dL (3.4-4.8); Alkaline Phosphatase 67 U/L (40-110); Anion Gap 13 mmol/L (10-20); BUN (Urea Nitrogen) 17 mg/dL (9.8-20.1); Bilirubin, Total 0.4 mg/dL (0.2-1.2); Calc. Creatinine Clearance 0 mL/min (70-130); Calcium 9.4 mg/dL (7.8-10.44); Carbon Dioxide 27 mmol/L (23-31); Chloride 103 mmol/L (98-107); Estimated GFR 73; Globulin 2.6 g/dL (2.4-3.5); Glucose 104 mg/dL (83-110); Potassium 4.5 mmol/L (3.5-5.1); Protein, Total 6.8 g/dL (5.8-8.1); Sodium 138 mmol/L (136-145)
== END 2023-07-30 09:12 | disposition home or self-care (01) ==
LOC: LABBT 09:11
PROVIDERS: ATTEND Surgery
DX: Z01.818 Encounter for other preprocedural examination (principal); K64.9 Unspecified hemorrhoids
CPT/HCPCS: 80053; 85025; 93005; 93010

== ENCOUNTER 2023-12-05 11:52 | Outpatient (CLI) | payer MEDICARE | END 2023-12-05 11:53 | disposition home or self-care (01) | LOC: BICMAMMO 11:52 | PROVIDERS: ATTEND Internal Medicine | DX: Z12.31 Encounter for screening mammogram for malignant neoplasm of breast (principal); Z80.3 Family history of malignant neoplasm of breast | CPT/HCPCS: 77063; 77067 ==

== ENCOUNTER 2025-01-28 13:36 | Outpatient (CLI) | payer MEDICARE | END 2025-01-28 13:37 | disposition home or self-care (01) | LOC: BICMAMMO 13:36 | PROVIDERS: ATTEND Internal Medicine | DX: Z12.31 Encounter for screening mammogram for malignant neoplasm of breast (principal); Z80.3 Family history of malignant neoplasm of breast | CPT/HCPCS: 77063; 77067 ==